=== PATIENT | female | born 2000 | race African-American/Black ===

== ENCOUNTER 2023-08-31 08:10 | Emergency (ER) | payer OTHER ==
[~2023-08-31] VITALS: Ht 149.9 cm; Wt 91.6 kg
[2023-08-31 08:45] VITALS: BP 133/87; O2SAT 100
== END 2023-08-31 08:56 | disposition home or self-care (01) ==
LOC: ER 08:10
DX: R00.2 Palpitations (principal); R11.0 Nausea
CPT/HCPCS: 93005; A4606; A4663